=== PATIENT | male | born 2000 | race African-American/Black ===

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

== ENCOUNTER 2022-09-05 02:00 | Emergency (ER) | payer OTHER ==
[2022-09-05 02:11] VITALS: BP 122/86; PULSE 110; RESP 20; TEMP 99.7; BMI 23.1
[2022-09-05] MEDS ORDERED: ACETAMINOPHEN 1000 MG/100 ML BAG IVPB ONE (02:39)
[2022-09-05] MEDS ORDERED: ONDANSETRON 4 MG/2 ML VIAL IVPUSH ONE (02:39)
[2022-09-05] MEDS ORDERED: SODIUM CHLORIDE 0.9% 500 ML INFUS.BAG IV ONE (02:39)
[2022-09-05] MEDS ORDERED: ACETAMINOPHEN INJECTION 100 ML IVPB ONE (03:11)
[2022-09-05] MEDS ORDERED: ONDANSETRON 4 MG/2 ML VIAL ONE (03:11)
== END 2022-09-05 04:40 | disposition home or self-care (01) ==
LOC: JER 02:00
PROC: 3E033NZ Introduction of Analgesics, Hypnotics, Sedatives into Peripheral Vein, Percutaneous Approach (ICD-10-PCS; principal; 2022-09-05)
PROC: 3E033GC Introduction of Other Therapeutic Substance into Peripheral Vein, Percutaneous Approach (ICD-10-PCS; 2022-09-05)
DX: R11.2 Nausea with vomiting, unspecified (principal); R19.7 Diarrhea, unspecified
CPT/HCPCS: 99284-25

== ENCOUNTER 2023-09-27 00:26 | Emergency (ER) | payer OTHER ==
[2023-09-27 00:35] VITALS: BP 155/89; PULSE 70; RESP 18; TEMP 98.4; BMI 22.4
[2023-09-27 02:48] LABS: EOS % 3.7 % (0-4.5); HEMATOCRIT 43.6 % (35.4-49); HEMOGLOBIN 14.4 GM/dL (11.7-16.9); LYMPH % 24.7 % (8-40); MCH 27.4 pg (25.7-33.7); MCHC 32.9 g/dl (32.0-35.9); MEAN CELL VOLUME 83.2 fl (80-96); MEAN PLT VOLUME 8.6 fl (7.5-11.1); NEUT % 63.6 % (42.8-82.8); PLATELET COUNT 265 10^3/uL (134-434); RBC 5.24 M/mm3 (4.00-5.60); RDW 13.2 % (11.9-15.9); WHITE BLOOD COUNT 6.8 K/mm3 (4.0-10.0)
[2023-09-27] MEDS ORDERED: ACETAMINOPHEN 325 MG TABLET (FP) ONE (02:48)
[2023-09-27] MEDS ORDERED: LIDOCAINE 4% PATCH TP ONE (02:49)
[2023-09-27] MEDS: ACETAMINOPHEN 500 MG TABLET (FP) PO ONE (02:55)
[2023-09-27] MEDS: LIDOCAINE 5% TOPICAL PATCH TP ONE (02:55)
[2023-09-27 03:26] LABS: POTASSIUM 4.3 mmol/L (3.5-5.1)
[2023-09-27 03:28] LABS: BLOOD UREA NITROGEN 8.3 mg/dL (7-18); CALCIUM 9.4 mg/dL (8.5-10.1)
[2023-09-27 03:29] LABS: ALBUMIN 4.1 g/dl (3.4-5.0)
[2023-09-27 03:33] LABS: BILIRUBIN,TOTAL 0.7 mg/dL (0.2-1); TOT PROT 8.1 g/dl (6.4-8.2)
[2023-09-27] MEDS ORDERED: LIDOCAINE PATCH REMOVAL MC SCH (22:00)
== END 2023-09-27 03:43 | disposition home or self-care (01) ==
LOC: JER 00:26
DX: Z04.1 Encounter for examination and observation following transport accident (principal); V43.52XA Car driver injured in collision with other type car in traffic accident, initial encounter
CPT/HCPCS: 36415; 71045-TC-FY; 80053; 85025; 93005; 93010; 99285-25